=== PATIENT | female | born 1995 | race Caucasian/White ===

== ENCOUNTER 2017-03-03 10:42 | Emergency (ER) | payer OTHER ==
[2017-03-03 13:42] LABS: Hematocrit 40 % (35-47); Hemoglobin 13.5 g/dl (12.0-16.0); Mean Corpuscular HGB Conc 34 g/dl (31-36); Mean Corpuscular Hemoglobin 29 pg (27-31); Mean Corpuscular Volume 86 fL (80-97); Mean Platelet Volume 9 um3 (7.4-10.4); Red Blood Count 4.67 10^6/ul (4.0-5.4); Red Cell Distribution Width 13 % (10.5-15); White Blood Count 13.9 10^3/ul (3.5-10.8)
[2017-03-03 13:48] LABS: Add Diff/Slide Review? Slide Review Added; Comments Flag Yes
[2017-03-03 13:59] LABS: Albumin 4.2 g/dL (3.2-5.2); Calcium 9.7 mg/dL (8.6-10.3); EGFR African American 117.1 (>60); EGFR Non-African American 91.1 (>60); Globulin 3.5 g/dL (2-4); Potassium 3.7 mmol/L (3.5-5.0); Total Bilirubin 0.6 mg/dL (0.2-1.0); Total Protein 7.7 g/dL (6.4-8.9)
[2017-03-03] MEDS ORDERED: Ketorolac INJ* 30 MG/ML 1 ML VIAL IV PUSH ONE (14:10)
[2017-03-03] MEDS ORDERED: Diazepam SYRINGE* 5 MG/ML SYRINGE IV ONE (14:10)
[2017-03-03 15:05] LABS: Body Fluid Appearance Clear
[2017-03-03 15:16] LABS: BF RBC Count #1 1; BF WBC Count #1 2
[2017-03-03 15:19] LABS: BF RBC Count #2 1; BF WBC Count #2 1; Body Fluid WBC 2 /mcL; RBC counts within 6%? Yes; WBC counts within 15%? Yes
[2017-03-03 15:23] LABS: Body Fluid Total Cells Counted 0
[2017-03-03 15:27] LABS: CSF Glucose 66 mg/dL (40-70)
[2017-03-03] MEDS ORDERED: NS 0.9% 1000 ML* 1,000 ML IV ONE (15:29)
[2017-03-03 15:53] VITALS: BP 103/64
[2017-03-03 15:58] LABS: Urine Bacteria 1+ (Absent); Urine Bilirubin Negative (Negative); Urine Glucose Negative (Negative); Urine Nitrite Negative (Negative)
--- NOTE | 2017-03-03 22:08 | ED ---
Rolando Stewart Alok, scribed for Michael Yanes MD on 03/03/17 at 1440 . Neck Pain - HPI Summary HPI Summary: 21 y/o female presents to the ED for neck pain for the last few days accompanied by a fever. Pt states that 4 days ago she pulled her neck muscle while putting on her back pain and experienced stiffness and pain the following day. Pt states she took ibuprofen with no relief. Pt states that since 3 days ago she has had a fever accompanied by nausea and myalgia. Pt also notes SOB, back spasms, and an ear ache yesterday. Pt states she used an inhaler yesterday with no relief. Pt also notes abd pain with loss of appetite and diarrhea. pt denies vomit, cough, sore throat, or photophobia. Pt denies hematuria or dysuria. Her LMP was 3 weeks ago. Pt takes BCP. Pt denies asthma. - History of Current Complaint Chief Complaint: EDFever Stated Complaint: FEVER/NECK PAIN/SENT FROM [facility] Time Seen by Provider: 03/03/17 13:18 Hx Obtained From: Patient Hx Last Menstrual Period: 3 weeks ago Onset/Duration Of Injury/Symptoms: Days Mechanism Of Injury: Other - Putting on backpack Timing: Constant Onset/Duration: Still Present Severity Initially: Moderate Severity Currently: Moderate Pain Intensity: 7 Pain Scale Used: 0-10 Numeric Location: Discrete At: - Neck Character: Stiff, Spasmotic Alleviating Factors: Nothing Associated Signs & Symptoms: Positive: Fever - Allergies/Home Medications Allergies/Adverse Reactions: Allergies Allergy/AdvReac Type Severity Reaction Status Date / Time No Known Allergies Allergy Verified 03/03/17 14:21 PMH/Surg Hx/FS Hx/Imm Hx Respiratory History: Denies: Hx Asthma Infectious Disease History: No Infectious Disease History: Denies: Traveled Outside the [place] in Last 30 Days - Family History Known Family History: Negative: Diabetes - Social History Occupation: Student Alcohol Use: Rare Substance Use Type: Reports: None Smoking Status (MU): Never Smoked Tobacco Review of Systems Positive: Fever. Negative: Chills Negative: Photophobia, Erythema Positive: Ear Ache. Negative: Sore Throat Negative: Chest Pain Positive: Shortness Of Breath. Negative: Cough Positive: Abdominal Pain, Diarrhea, Nausea, Other - Loss of apetite. Negative: Vomiting Negative: dysuria, hematuria Positive: Myalgia, Other - Neck pain, Back spasms. Negative: Edema Negative: Rash Neurological: Other - Negative: Dizziness All Other Systems Reviewed And Are Negative: Yes Physical Exam - Summary Physical Exam Summary: Constitutional: Well-developed, Well-nourished, Alert. (-) Distressed Skin: Warm, Dry HENT: Eyes: Conjunctiva normal Neck: Musculoskeletal ROM normal neck. (-) JVD, (-) Stridor, (-) Tracheal deviation Cardio: Rhythm regular, rate normal, Heart sounds normal; Intact distal pulses; The pedal pulses are 2+ and symmetric. Radial pulses are 2+ and symmetric. (-) Murmur Pulmonary/Chest wall: Effort normal. (-) Respiratory distress, (-) Wheezes, (-) Rales Abd: Soft. (-) Tenderness, (-) Distension, (-) Guarding, (-) Rebound Musculoskeletal: (-) Edema Lymph: Cervical adenopathy Neuro: Alert, Oriented x3, Strength normal, Cranial nerves II-XII are grossly intact. (-) Dysmetria, (-) Nystagmus, (-) Ataxia by finger to nose testing, (-) Sensory deficit. Psych: Mood and affect Normal Meningitis Exam: Positive Triage Information Reviewed: Yes Vital Signs On Initial Exam: Initial Vitals Temp Pulse Resp BP Pulse Ox 98.3 F 75 20 106/64 100 03/03/17 11:06 03/03/17 11:06 03/03/17 11:06 03/03/17 11:06 03/03/17 11:06 Vital Signs Reviewed: Yes - Wendie Coma Scale Coma Scale Total: 15 Procedures - Lumbar Puncture Position: Lateral Decubitus Spinal Needle Used: Other - 23.5 gauge Lumbar Puncture Note: L4 L5. 4 ml clear fluid. Diagnostics - Vital Signs Vital Signs Temp Pulse Resp BP Pulse Ox 03/03/17 14:24 87 12 110/76 99 03/03/17 13:41 99 03/03/17 12:04 98.1 F 81 16 108/70 100 03/03/17 11:10 97.9 F 89 16 106/64 100 03/03/17 11:06 98.3 F 75 20 106/64 100 - Laboratory Lab Results: Lab Results 03/03/17 03/03/17 03/03/17 Range/Units 13:25 13:25 13:25 WBC 13.9 H (3.5-10.8) 10^3/ul RBC 4.67 (4.0-5.4) 10^6/ul Hgb 13.5 (12.0-16.0) g/dl Hct 40 (35-47) % MCV 86 (80-97) fL MCH 29 (27-31) pg MCHC 34 (31-36) g/dl RDW 13 (10.5-15) % Plt Count 209 (150-450) 10^3/ul MPV 9 (7.4-10.4) um3 Neut % (Auto) 73.7 (38-83) % Lymph % (Auto) 11.0 L (25-47) % Wheeler % (Auto) 15.0 H (1-9) % Eos % (Auto) 0 (0-6) % Baso % (Auto) 0.3 (0-2) % Absolute Neuts (auto) 10.2 H (1.5-7.7) 10^3/ul Absolute Lymphs (auto) 1.5 (1.0-4.8) 10^3/ul Absolute Monos (auto) 2.1 H (0-0.8) 10^3/ul Absolute Eos (auto) 0 (0-0.6) 10^3/ul Absolute Basos (auto) 0 (0-0.2) 10^3/ul Absolute Nucleated RBC 0.01 10^3/ul Nucleated RBC % 0 INR (Anticoag Therapy) 1.03 (0.89-1.11) APTT 25.6 L (26.0-36.3) seconds Sodium 135 (133-145) mmol/L Potassium 3.7 (3.5-5.0) mmol/L Chloride 100 L (101-111) mmol/L Carbon Dioxide 24 (22-32) mmol/L Anion Gap 11 (2-11) mmol/L BUN 13 (6-24) mg/dL Creatinine 0.81 (0.51-0.95) mg/dL Est GFR ( Amer) 117.1 (>60) Est GFR (Non-Af Amer) 91.1 (>60) BUN/Creatinine Ratio 16.0 (8-20) Glucose 94 (70-100) mg/dL Lactic Acid (0.5-2.0) mmol/L Calcium 9.7 (8.6-10.3) mg/dL Total Bilirubin 0.60 (0.2-1.0) mg/dL AST 14 (13-39) U/L ALT 15 (7-52) U/L Alkaline Phosphatase 47 (34-104) U/L Total Protein 7.7 (6.4-8.9) g/dL Albumin 4.2 (3.2-5.2) g/dL Globulin 3.5 (2-4) g/dL Albumin/Globulin Ratio 1.2 (1-3) 03/03/17 Range/Units 13:25 WBC (3.5-10.8) 10^3/ul RBC (4.0-5.4) 10^6/ul Hgb (12.0-16.0) g/dl Hct (35-47) % MCV (80-97) fL MCH (27-31) pg MCHC (31-36) g/dl RDW (10.5-15) % Plt Count (150-450) 10^3/ul MPV (7.4-10.4) um3 Neut % (Auto) (38-83) % Lymph % (Auto) (25-47) % Wheeler % (Auto) (1-9) % Eos % (Auto) (0-6) % Baso % (Auto) (0-2) % Absolute Neuts (auto) (1.5-7.7) 10^3/ul Absolute Lymphs (auto) (1.0-4.8) 10^3/ul Absolute Monos (auto) (0-0.8) 10^3/ul Absolute Eos (auto) (0-0.6) 10^3/ul Absolute Basos (auto) (0-0.2) 10^3/ul Absolute Nucleated RBC 10^3/ul Nucleated RBC % INR (Anticoag Therapy) (0.89-1.11) APTT (26.0-36.3) seconds Sodium (133-145) mmol/L Potassium (3.5-5.0) mmol/L Chloride (101-111) mmol/L Carbon Dioxide (22-32) mmol/L Anion Gap (2-11) mmol/L BUN (6-24) mg/dL Creatinine (0.51-0.95) mg/dL Est GFR ( Amer) (>60) Est GFR (Non-Af Amer) (>60) BUN/Creatinine Ratio (8-20) Glucose (70-100) mg/dL Lactic Acid 0.8 (0.5-2.0) mmol/L Calcium (8.6-10.3) mg/dL Total Bilirubin (0.2-1.0) mg/dL AST (13-39) U/L ALT (7-52) U/L Alkaline Phosphatase (34-104) U/L Total Protein (6.4-8.9) g/dL Albumin (3.2-5.2) g/dL Globulin (2-4) g/dL Albumin/Globulin Ratio (1-3) Result Diagrams: 03/03/17 13:25 03/03/17 13:25 Lab Statement: Any lab studies that have been ordered have been reviewed, and results considered in the medical decision making process. Neck Course/Dx - Course Course Of Treatment: Tolerated PO. CHF negative. Urine infected. General viral symptoms. - Diagnoses Provider Diagnoses: UTI (urinary tract infection), general viral illness, Cervical strain, Myalgia - Physician Notifications Discussed Care Of Patient With: Pt Mother @ 1405 - understands diagostics and treatment. Consents to procedure. Hetal Hensley @ [facility] @ [phone] - will see pt tomorrow in her office Discharge - Discharge Plan Condition: Stable Disposition: HOME Prescriptions: Cephalexin CAP* [Keflex 500 CAP*] 500 mg PO QID #40 cap Diazepam TAB(*) [Valium TAB(*)] 2 mg PO TID PRN #12 tab MDD 4 PRN Reason: Pain - Moderate To Severe Naproxen TAB* [Naprosyn 250 mg TAB*] 500 mg PO Q8H PRN #30 tab PRN Reason: Pain - Moderate To Severe Patient Education Materials: Urinary Tract Infection in Women (ED), Viral Syndrome (ED) Forms: *School Release Referrals: [facility] @ [facility] [Outside] [facility] [Primary Care Provider] - 1 Day Additional Instructions: Please follow up with [facility] @ [facility] tomorrow. The documentation as recorded by the Rolando garcia Alok accurately reflects the service I personally performed and the decisions made by me, Michael Yanes MD.
== END 2017-03-03 17:17 | disposition home or self-care (01) ==
LOC: ED 10:42
DX: N39.0 Urinary tract infection, site not specified (principal); B34.9 Viral infection, unspecified; S16.1XXA Strain of muscle, fascia and tendon at neck level, initial encounter; M79.1 Myalgia; X50.9XXA Other and unspecified overexertion or strenuous movements or postures, initial encounter; Y92.9 Unspecified place or not applicable
CPT/HCPCS: 36415; 62270; 80053; 81003; 81015; 82945; 83605; 84157; 85025; 85610; 85730; 87040; 87070; 87086; 87205; 87502; 89051; 99283; J0696; J1885; J3360

== ENCOUNTER 2019-08-23 21:43 | Emergency (ER) | payer OTHER ==
--- NOTE | 2019-08-23 23:52 | ED ---
Throat Pain/Nasal Congestion - HPI Summary HPI Summary: 23 yo female presents to [facility] ED with b/l ear pain and jaw pain. She tells me that she has a long history of otitis media and otitis externa. Recently over the last week has had b/l ear pain. 3 days ago was dx'd with b/l otitis externa and was placed on ciprodex, which she has been using. Her pain and ear drainage/ swelling has significantly worsened since that time. She has felt feverish, but denies having a temperature. Today her pain has increased so that she cannot open her jaw due to TMJ pain. She is able to drink fluids, but has not eaten due to pain. Denies headache, vision changes, sore throat, cough, abdominal pain , n/v. - History of Current Complaint Chief Complaint: EDEarPain Time Seen by Provider: 08/23/19 23:52 Hx Obtained From: Patient Onset/Duration: Gradual Onset Severity: Severe - Allergies/Home Medications Allergies/Adverse Reactions: Allergies Allergy/AdvReac Type Severity Reaction Status Date / Time No Known Allergies Allergy Verified 08/23/19 21:47 Home Medications: Home Medications NK [No Home Medications Reported] 08/23/19 [History Confirmed 08/23/19] PMH/Surg Hx/FS Hx/Imm Hx Endocrine/Hematology History: Denies: Hx Diabetes Cardiovascular History: Denies: Hx Hypotension, Hx Hypertension Respiratory History: Denies: Hx Asthma Neurological History: Denies: Hx Migraine - Surgical History Surgical History: None Infectious Disease History: No Infectious Disease History: Denies: Traveled Outside the [place] in Last 30 Days - Family History Known Family History: Negative: Diabetes - Social History Occupation: Student Lives: With Family Alcohol Use: Rare Substance Use Type: Reports: None Smoking Status (MU): Never Smoked Tobacco Review of Systems Positive: Fever Eyes: Negative Positive: Ear Ache Cardiovascular: Negative Respiratory: Negative Gastrointestinal: Negative Genitourinary: Negative Neurological: Negative Psychological: Normal All Other Systems Reviewed And Are Negative: No Physical Exam - Summary Physical Exam Summary: GENERAL: NAD. WDWN. No pain distress. SKIN: No rashes, sores, lesions, or open wounds. HEENT: Head: AT/NC Eyes: EOM intact. Conjunctiva clear without inflammation or discharge. Ears: Hearing grossly normal. RIGHT EAR: Moderate ear canal edema and yellow/clear discharge. No mastoid tenderness. Severe TTP tragus and TMJ. LEFT EAR: Moderate ear canal edema and yellow/clear discharge. At inferior external canal there appears with granulation tissue. No mastoid tenderness. Severe TTP tragus and TMJ. Nose: Nasal mucosa pink and moist. NTTP maxillary and frontal sinus. Throat: Posterior oropharynx without exudates, erythema, or tonsillar enlargement. Uvula midline. Keeps jaw closed due to TMJ pain. NECK: Supple. Nontender. No lymphadenopathy. CHEST: CTAB. No r/r/w. No accessory muscle use. Breathing comfortably and in no distress. CV: RRR. Without m/r/g. Pulses intact. NEURO: Alert. PSYCH: Age appropriate behavior. Triage Information Reviewed: Yes Vital Signs On Initial Exam: Initial Vitals Temp Pulse Resp BP Pulse Ox 98.8 F 108 16 132/85 99 08/23/19 21:45 08/23/19 21:45 08/23/19 21:45 08/23/19 21:45 08/23/19 21:45 Vital Signs Reviewed: Yes Procedures - Sedation Patient Received Moderate/Deep Sedation with Procedure: No Diagnostics - Vital Signs Vital Signs Temp Pulse Resp BP Pulse Ox 08/23/19 21:45 98.8 F 108 16 132/85 99 - Laboratory Lab Results: Laboratory Tests 08/24/19 08/24/19 08/24/19 00:08 00:08 00:08 WBC 14.3 H RBC 4.69 Hgb 13.6 Hct 40 MCV 85 MCH 29 MCHC 34 RDW 13 Plt Count 305 MPV 8.4 Neut % (Auto) 77.9 Lymph % (Auto) 13.1 Coffee % (Auto) 8.5 Eos % (Auto) 0.1 Baso % (Auto) 0.4 Absolute Neuts (auto) 11.2 H Absolute Lymphs (auto) 1.9 Absolute Monos (auto) 1.2 H Absolute Eos (auto) 0.0 Absolute Basos (auto) 0.1 Absolute Nucleated RBC 0.1 Nucleated RBC % 0.3 ESR 32 H Sodium 135 Potassium 4.0 Chloride 100 L Carbon Dioxide 27 Anion Gap 8 BUN 7 Creatinine 0.81 Est GFR ( Amer) 108.0 Est GFR (Non-Af Amer) 89.3 BUN/Creatinine Ratio 8.6 Glucose 101 H Lactic Acid 0.7 Calcium 9.8 Total Bilirubin 0.40 AST 15 ALT 12 Alkaline Phosphatase 55 C-Reactive Protein 34.98 H Total Protein 8.0 Albumin 4.4 Globulin 3.6 Albumin/Globulin Ratio 1.2 Result Diagrams: 08/24/19 00:08 08/24/19 00:08 Lab Statement: Any lab studies that have been ordered have been reviewed, and results considered in the medical decision making process. - CT Maxio CT Interpretation Completed By: Radiologist Summary of CT Findings: Soft tissues: Cutaneous thickening of the bilateral external auditory canals which involved the inner aspects of the pinna. Mild adjacent subcutaneous stranding. No associated fluid collections. Remaining soft tissues are normal. IMPRESSION: Bilateral otitis externa. EENT Course/Dx - Course Course Of Treatment: Labs as above. Pt was given 1L NS, toradol, and zofran for her discomfort with good relief. At this point her symptoms and exam are most concerning for malignant necrotizing otitis externa. I discussed the case with Dr. Villanueva and will order for CT to further eval the area. CT as above. Will sign pt out to Dr. Villanueva pending IV cipro and dispo - Diagnoses Provider Diagnoses: Otitis externa Discharge ED - Sign-Out/Discharge Documenting (check all that apply): Sign-Out Patient Signing out patient TO: Krista Villanueva - Discharge Plan Condition: Stable Disposition: HOME Referrals: No Primary Care Phys,NOPCP [Primary Care Provider] - - Billing Disposition and Condition Condition: STABLE Disposition: Home
[2019-08-23] MEDS ORDERED: Ketorolac *IM* INJ* 60 MG/2 ML VIAL IM ONE (23:55)
[2019-08-24 00:15] LABS: ABS Basophils 0.1 10^3/ul (0-0.2); ABS Lymphocytes 1.9 10^3/ul (1.0-4.8); ABS Monocytes 1.2 10^3/ul (0-0.8); ABS Neutrophils 11.2 10^3/ul (1.5-7.7); ABS Nucleated RBC 0.1 10^3/ul; Eosinophil % 0.1 %; Hematocrit 40 % (35-47); Hemoglobin 13.6 g/dL (12.0-16.0); Lymphocyte % 13.1 %; Mean Corpuscular HGB Conc 34 g/dL (31-36); Mean Corpuscular Hemoglobin 29 pg (27-31); Mean Corpuscular Volume 85 fL (80-97); Mean Platelet Volume 8.4 fL (7.4-10.4); Nucleated Red Blood Cells % 0.3; Platelet Count 305 10^3/uL (150-450); Red Blood Count 4.69 10^6 /uL (3.70-4.87); Red Cell Distribution Width 13 % (10-15); White Blood Count 14.3 10^3/uL (3.5-10.8)
[2019-08-24 00:32] LABS: Albumin 4.4 g/dL (3.2-5.2); Albumin/Globulin Ratio 1.2 (1-3); BUN/Creatinine Ratio 8.6 (8-20); C Reactive Protein 34.98 mg/L (<8.01); Calcium 9.8 mg/dL (8.6-10.3); EGFR Non-African American 89.3 (>60); Globulin 3.6 g/dL (2-4); Total Bilirubin 0.4 mg/dL (0.2-1.0)
[2019-08-24] MEDS ORDERED: NS 0.9% 1000 ML** 1,000 ML IV ONE (00:51)
[2019-08-24] MEDS ORDERED: Iohexol 300* (CONTRAST) 10 ML SDV IV ONE (00:52)
[2019-08-24 01:16] LABS: Erythrocyte Sed Rate 32 mm/Hr (0-19)
[2019-08-24] MEDS ORDERED: Ondansetron INJ* 2 MG/ML VIAL IV ONE (02:03)
[2019-08-24] MEDS ORDERED: Ciprofloxacin 400MG IVPREMIX(* 400 MG/200 ML BAG IVPB ONE (02:26)
[2019-08-24] MEDS ORDERED: diPHENhydraMINE IV* 50 MG/ML 1 ml VIAL (BENADRYL) IV ONE (02:27)
--- NOTE | 2019-08-24 02:32 | ED ---
Progress - Progress Note Progress Note: This pt is a signout from CHANDRAKANT Spear to Dr. Villanueva at 0300 08/24/19 shift change pending completion of IV antibiotics and discharge. Maxillofacial CT IMPRESSION: Bilateral otitis externa. Pt will be discharged. Course/Dx - Course Course Of Treatment: This pt is a signout from CHANDRAKANT Spear to Dr. Villanueva at 0300 08/24/19 shift change pending completion of IV antibiotics and discharge. Maxillofacial CT IMPRESSION: Bilateral otitis externa. Pt will be discharged. - Diagnoses Provider Diagnoses: Otitis externa Discharge ED - Sign-Out/Discharge Documenting (check all that apply): Patient Departure - discharge, Receiving Sign-Out Receiving patient FROM: Dillon Spear - This pt is a signout from CHANDRAKANT Spear to Dr. Villanueva at 03008/24/19 shift change pending completion of IV antibiotics and discharge. - Discharge Plan Condition: Stable Disposition: HOME Referrals: [facility] [Outside] - 3 Days Additional Instructions: Follow up with your primary care provider within 3 days. Return to the ED for any new or worsening symptoms. - Billing Disposition and Condition Condition: STABLE Disposition: Home - Attestation Statements Document Initiated by Scribe: Yes Documenting Scribe: Edison Howe Provider For Whom Xenia is Documenting (Include Credential): Dr. Krista Villanueva MD Scribe Attestation: Edison Stewart scribed for Dr. Krista Villanueva MD on 08/24/19 at 0444. Scribe Documentation Reviewed: Yes Provider Attestation: The documentation as recorded by the Edison garcia accurately reflects the service I personally performed and the decisions made by me, Dr. Krista Villanueva MD Status of Scribe Document: Viewed
[2019-08-24 03:58] VITALS: BP 102/67
== END 2019-08-24 03:57 | disposition home or self-care (01) ==
LOC: ED 21:43
DX: H60.93 Unspecified otitis externa, bilateral (principal); R68.84 Jaw pain
CPT/HCPCS: 36415; 70487; 80053; 83605; 85025; 85652; 86140; 96361; 96365; 96372; 96375; 99283; J0744; J1200; J1885; J2405; Q9967